=== PATIENT | female | born 1990 | race Caucasian/White ===

== ENCOUNTER 2019-09-28 18:52 | Emergency (ER) | payer OTHER ==
[~2019-09-28] VITALS: Ht 154.9 cm; Wt 58.5 kg
[2019-09-28 18:57] VITALS: BP 134/84
--- NOTE | 2019-09-28 19:25 | NUR ---
PT AMBULATED TO BED 07
--- NOTE | 2019-09-28 19:31 | NUR ---
29 YO FEMALE CO PAIN ON HER LEFT CHEEK. SMALL PIMPLE LIKE SPOT ON CHEEK. SLIGHT REDNESS AND NO DRAINAGE. PT STATES THAT SHE HAS BEEN PICKING AT HER FACE FOR THE LAST 2 DAYS. NO ALLERGIES TO ANY MEDICATIONS AND NO MEDICAL HISTORY.
--- NOTE | 2019-09-28 21:09 | NUR ---
DR JUNE DISCHARGED THE PT AND GAVE INSTRUCTIONS AND TEACHING
== END 2019-09-28 21:09 | disposition home or self-care (01) ==
LOC: MED 18:52
DX: L73.9 Follicular disorder, unspecified (principal); Z88.2 Allergy status to sulfonamides
CPT/HCPCS: 99283